=== PATIENT | male | born 1980 | race Caucasian/White ===

== ENCOUNTER 2016-04-23 21:25 | Emergency (ER) | payer OTHER ==
[2016-04-23] MEDS ORDERED: IBUPROFEN 600 MG TABLET PO STA (21:49)
[2016-04-23] MEDS ORDERED: SODIUM CHLORIDE 0.9% 1,000 ML IV STA (21:49)
[2016-04-23] MEDS ORDERED: IBUPROFEN 600 MG TABLET PO ONE (21:58)
[2016-04-23] MEDS ORDERED: AZITHROMYCIN 250 MG TABLET PO STA (22:58)
[2016-04-23] MEDS ORDERED: guaiFENesin/CODEINE 5 ML UDC PO STA (22:58)
[2016-04-23] MEDS ORDERED: cefTRIAXone 1 GM in SODIUM CHLORIDE 0.9% MINIBAG 100 ML IV STA (22:58)
[2016-04-23] MEDS ORDERED: AZITHROMYCIN 250 MG TABLET PO ONE (23:03)
[2016-04-23] MEDS ORDERED: guaiFENesin/CODEINE 5 ML UDC ONE (23:04)
[2016-04-23] MEDS ORDERED: cefTRIAXone 1 GM VIAL ONE (23:04)
== END 2016-04-23 23:19 | disposition home or self-care (01) ==
DX: J18.9 Pneumonia, unspecified organism (principal); F17.200 Nicotine dependence, unspecified, uncomplicated
CPT/HCPCS: 36415; 71020; 80048; 96361; 96374; 99283; 99284; A9270

== ENCOUNTER 2016-12-26 14:47 | Outpatient (CLI) | payer OTHER ==
--- NOTE | 2016-12-28 16:01 | MRI Report ---
EXAM: MRI LUMBAR SPINE WITHOUT CONTRAST EXAM DATE: 12/26/2016 03:31 PM. CLINICAL HISTORY: Low back pain. Left leg numbness and tingling. Severe pain at night. COMPARISON: None. TECHNIQUE: Multiplanar, multisequence T1-weighted and fluid-sensitive sequences of the lumbar spine f rom T12 to S1 without contrast. Other: None. FINDINGS: Spinal Cord: The conus terminates at T12-L1. No signal abnormality in the visualized spinal cord. Alignment: Normal. No scoliosis or spondylolisthesis. Bone Marrow: Five nni-qbw-groyxba lumbar vertebral bodies are assumed. No gross fractures or bone les ions. Disk Levels/Facets: L5-S1: Type I degenerative endplate changes. Small to moderate sized posterior central to left parace ntral disk extrusion which abuts the descending left S1 nerve. There is moderate right and moderate t o severe left foraminal stenoses. L4-L5: Small disk bulge. Small facet joint effusions. Mild canal stenosis. Moderate to severe foramin al stenoses. L3-L4: Small to moderate sized posterior right paracentralforaminal disk protrusion. Mild to moderat e right subarticular zone stenosis. Moderate right foraminal stenosis. L2-L3: Unremarkable. L1-L2 and T12-L1: Unremarkable. Musculature: Normal. No edema or fatty atrophy. Other: The visualized pelvic cavity is unremarkable. IMPRESSION: 1. Cybng-wo-oqjjamto sized posterior central to left paracentral disk extrusion at L5-S1 which abuts the descending left S1 nerve. Moderate right and moderate to severe left foraminal stenoses. 2. Small disk bulge and facet joint effusions at L4-L5. Mild canal and moderate to severe foraminal s tenoses. 3. Small to moderate-sized posterior right paracentralforaminal disk protrusion at L3-L4. The disk p rotrusion abuts the exiting right L3 nerve. Yrgy-jz-nebqhotn right subarticular zone and moderate rig ht foraminal stenoses. Comment: The following findings are so common in adults without low back pain that while we report th eir presence, they must be interpreted with caution and in the context of the clinical situation. (Re allen Bellamy et al, Spine 2001) Prevalence of findings in patients without low back pain: Disk degeneration (any evidence): 92% Disk desiccation/T2 signal loss: 83% Disk height loss: 56% Disk bulge: 64% Disk protrusion: 32% Annular tear/high intensity zone: 38% [facility] Referring Provider Line: [phone] SITE ID: [id number]
== END 2016-12-26 14:48 | disposition home or self-care (01) ==
LOC: DI 14:47
PROVIDERS: ATTEND General Practice
DX: M51.27 Other intervertebral disc displacement, lumbosacral region (principal); M51.26 Other intervertebral disc displacement, lumbar region
CPT/HCPCS: 72148

== ENCOUNTER 2017-06-01 13:04 | Outpatient (CLI) | payer OTHER ==
--- NOTE | 2017-06-01 15:40 | MRI Report ---
EXAM: MRI LUMBAR SPINE WITHOUT CONTRAST EXAM DATE: 06/01/2017 01:39 PM. CLINICAL HISTORY: Recurring low back pain radiating to the left leg. COMPARISON: None. TECHNIQUE: Multiplanar, multisequence T1-weighted and fluid-sensitive sequences of the lumbar spine f rom T12 to S1 without contrast. Other: None. FINDINGS: Spinal Cord: The conus terminates at T12-L1. The conus medullaris and cauda equina are unremarkable. Alignment: No scoliosis or spondylolisthesis. Bone Marrow: Five sdh-fps-rsoohlc lumbar vertebral bodies are assumed. There is Modic type I change a t the L5-S1 level. Disk Levels/Facets: T12-L1: Unremarkable. L1-L2: Unremarkable. L2-L3: Unremarkable. L3-L4: There is a right foraminal disk protrusion which contacts and posteriorly displaces the right L3 root. There is a broad-based posterior disk bulge. The findings cause mild canal narrowing. There is mild left foraminal narrowing. L4-L5: There is mild bilateral facet joint osteoarthritis. There is a right foraminal annular tear wi th a disk bulge causing moderate right foraminal narrowing. There is moderate left foraminal narrowin g as well. L5-S1: The left paracentral disk extrusion at L5-S1 has decreased significantly in size. The fragment no longer contacts the left S1 nerve root. There is moderate bilateral facet joint osteoarthritis. T here is moderate bilateral foraminal narrowing. Facet joint osteophytes contact the left L5 nerve lucrecia t in the neural foramen. Musculature: Normal. No edema or fatty atrophy. Other: The partially visualized retroperitoneum is unremarkable. IMPRESSION: 1. L3-L4: There is a right foraminal disk protrusion which contacts and posteriorly displaces the rig ht L3 root. Mild canal and left foraminal narrowing. The findings are unchanged when compared with th e prior study. 2. L4-L5: There is mild bilateral facet joint osteoarthritis. There is a right foraminal annular tear with a disk bulge causing moderate right foraminal narrowing. There is moderate left foraminal narro wing as well. 3. L5-S1: The left paracentral disk extrusion at L5-S1 has decreased significantly in size since the prior study.. It no longer contacts the left S1 nerve root. There is moderate bilateral foraminal natalie rowing. Facet joint osteophytes contact the left L5 nerve root in the neural foramen. Comment: The following findings are so common in adults without low back pain that while we report th eir presence, they must be interpreted with caution and in the context of the clinical situation. (Re allen Bellamy et al, Spine 2001) Prevalence of findings in patients without low back pain: Disk degeneration (any evidence): 92% Disk desiccation/T2 signal loss: 83% Disk height loss: 56% Disk bulge: 64% Disk protrusion: 32% Annular tear/high intensity zone: 38% [facility] Referring Provider Line: [phone] SITE ID: [id number]
== END 2017-06-01 13:05 | disposition home or self-care (01) ==
LOC: DI 13:04
PROVIDERS: ATTEND Anesthesiology Pain Medicine
DX: M51.26 Other intervertebral disc displacement, lumbar region (principal); M51.27 Other intervertebral disc displacement, lumbosacral region; M47.896 Other spondylosis, lumbar region; M51.36 Other intervertebral disc degeneration, lumbar region
CPT/HCPCS: 72148

== ENCOUNTER 2018-03-16 05:23 | Emergency (ER) | payer OTHER ==
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
[2018-03-16] MEDS ORDERED: KETOROLAC 60 MG/2 ML VIAL IM STA (06:09)
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
[2018-03-16 06:35] VITALS: BP 123/77
== END 2018-03-16 06:35 | disposition home or self-care (01) ==
LOC: ED 05:23
DX: R51 Headache (principal); V43.52XA Car driver injured in collision with other type car in traffic accident, initial encounter; F17.200 Nicotine dependence, unspecified, uncomplicated
CPT/HCPCS: 70450; 96372; 99283

== ENCOUNTER 2020-07-18 12:42 | Emergency (ER) | payer OTHER ==
[2020-07-18] MEDS ORDERED: BUFFERED LIDOCAINE 10 ML SYRINGE SUBQ STA (12:54)
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
--- OUTSIDE RECORDS SUMMARY | 2020-07-18 13:04 | EXTERNAL MEDICAL SUMMARY RPT | Continuity of Care Document ---
:1980 Demographics Phone Unavailable Preferred Language Unknown Marital Status Unknown Moravian Affiliation Unknown Race Unknown Ethnic Group Unknown Author Organization [facility] Address [address] [phone] Phone Social History date description facility [phone]
[2020-07-18 13:43] VITALS: BP 137/82
== END 2020-07-18 13:45 | disposition home or self-care (01) ==
LOC: ED 12:42
DX: S61.412A Laceration without foreign body of left hand, initial encounter (principal); W25.XXXA Contact with sharp glass, initial encounter; F17.200 Nicotine dependence, unspecified, uncomplicated
CPT/HCPCS: 12002; 99281; 99282